=== PATIENT | female | born 1985 | race Hispanic/Latino ===

== ENCOUNTER → 2018-01-14 | Emergency (ER) | payer OTHER ==
[~2018-01-14] VITALS: Ht 167.6 cm; Wt 149.7 kg
[~2018-01-14] MED LIST: CYCLOBENZAPRINE HCL 10 MG TAB PO ONE; HYDROCODONE/APAP 10MG-325MG TAB PO NR; KETOROLAC TROMETHAMINE 60 MG/2 ML VIAL IM ONE
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
[2018-01-14 19:56] VITALS: BP 124/78
== END | disposition home or self-care (01) ==
LOC: ER 14:08
DX: M54.2 Cervicalgia (principal); M54.6 Pain in thoracic spine; M54.5 Low back pain; S23.3XXA Sprain of ligaments of thoracic spine, initial encounter; S33.5XXA Sprain of ligaments of lumbar spine, initial encounter; M62.830 Muscle spasm of back; V43.52XA Car driver injured in collision with other type car in traffic accident, initial encounter; Y92.488 Other paved roadways as the place of occurrence of the external cause
CPT/HCPCS: 72072; 72100; 72125; 81025; 99283; J1885